=== PATIENT | male | born 1945 | race Caucasian/White ===

== ENCOUNTER → 2021-07-12 10:26 | Outpatient (CLI) | payer MEDICARE, OTHER, SELFPAY ==
--- NOTE | ~2021-07-12 | XR_ITS ---
XR abdomen/kub 1V 07/12/2021 11:52 Indication: Microscopic hematuria Procedure: KUB Comparison: No prior studies for comparison. Findings: Nonobstructive bowel gas pattern. Moderate colonic fecal loading. There is contrast in nond ilated bilateral renal collecting systems and ureters as well as the bladder. Moderate lumbar spondyl osis. Impression: 1: No acute abdominal abnormality. Reviewed, dictated and finalized at location A. [employer]OR OF PROGRAM MANAGEMENT Impression: 1: No acute abdominal abnormality.
--- NOTE | ~2021-07-12 | CT_ITS ---
EXAMINATION: CT abdomen pelvis wo/w con DATE: 07/12/2021 11:52 INDICATION: Microscopic hematuria TECHNIQUE: Computed tomography (CT) of the abdomen and pelvis was performed without and with 130 cc O mnipaque 350 intravenous contrast. The dose-length product was 2317.48 mGy-cm. Automated exposure con trol and iterative reconstruction technique were employed. COMPARISON: CT dated 01/19/2018. FINDINGS: Stable 5 mm left lower lobe nodule. Heart size is normal. No significant pleural or pericar dial effusion. Mild atherosclerosis. No aneurysm. No lymphadenopathy. There are gallstones. There are bladder diverticula with mild surrounding inflammatory change. Cystit is cannot be excluded. The liver, spleen, pancreas, adrenal glands are unremarkable. There are bilateral renal cysts. Ureter s are normal in course and caliber. Right ureteral jet identified. Colonic diverticulosis without stephanie dence for diverticulitis. Normal appendix. No free air or free fluid. No acute bone or joint abnormal ity. IMPRESSION: 1. Multiple bladder diverticula with mild surrounding stranding of the peridiverticular fat. Cannot e xclude cystitis. 2: Cholelithiasis. Reviewed, dictated and finalized at location A. BACK HOST IMPRESSION: 1. Multiple bladder diverticula with mild surrounding stranding of the peridive rticular fat. Cannot exclude cystitis. 2: Cholelithiasis.
[2021-07-12 11:20] LABS: Estimated Glomerular Filt Rate 54
== END ==
PROVIDERS: PCP Family Medicine; Visit Provider Urology
DX: R31.29 Other microscopic hematuria (principal); K80.20 Calculus of gallbladder without cholecystitis without obstruction; N32.3 Diverticulum of bladder; M47.816 Spondylosis without myelopathy or radiculopathy, lumbar region
CPT/HCPCS: 74018; 74178; Q9967

== ENCOUNTER 2022-06-06 15:35 | Outpatient (CLI) | payer OTHER, SELFPAY ==
--- NOTE | ~2022-06-06 | XR_ITS ---
XR tibia fibula RT 2V 06/06/2022 15:56 INDICATION: Injury to the right tibia/fibula PROCEDURE: 2 views right tibia/fibula COMPARISON: No prior studies for comparison. FINDINGS: Fracture, dislocation or subluxation is not identified. The soft tissues appear within norm al limits. No foreign bodies are identified. IMPRESSION: 1: NO ACUTE BONE OR JOINT ABNORMALITY IDENTIFIED. Reviewed, dictated and finalized at location A. MAKER
== END 2022-06-06 15:36 | disposition home or self-care (01) ==
PROVIDERS: PCP Family Medicine; Visit Provider Family Medicine
DX: S80.11XD Contusion of right lower leg, subsequent encounter (principal); L03.90 Cellulitis, unspecified; X58.XXXD Exposure to other specified factors, subsequent encounter
CPT/HCPCS: 73590

== ENCOUNTER 2025-05-06 08:36 | Emergency (ER) | payer MEDICARE, SELFPAY ==
[2025-05-06 08:49] VITALS: BP 134/58; PULSE 81; RESP 16; TEMP 36.7; O2SAT 95
--- NOTE | 2025-05-06 09:01 | ED.URI ---
HPI - URI/Sore Throat General Chief Complaint: Upper Respiratory Infection Stated Complaint: Cough Source: patient Mode of arrival: ambulatory Limitations: no limitations History of Present Illness HPI Narrative: this is a 79-year-old male patient who presents to the urgent care this morning with a 2 day history of cough, sinus congestion. Patient denies any fever, does endorse chills no body aches no shortness of breath or chest pain. No nausea, vomiting or diarrhea. Patient did have a cardiovascular procedure 10 days ago and was concerned. he has been taking Coricidin HBP as well as regular Mucinex with some relief of his symptoms. He denies any other distress or concerns. patient's has been ill since Friday with similar symptoms. MD elicited complaint: cough and nasal congestion Onset (ago): day(s) (2) Consistency: constant Severity: mild Description of mucous: clear Able to tolerate fluids by mouth: Yes Exacerbating factors: nothing Relieving factors: OTC cold medicine Context: sick contacts Associated symptoms: denies other symptoms Treatments prior to arrival: cold medicine Related Data Home Medications ?Medication ?Instructions ?Recorded ?Confirmed ?Last Taken ?Type cyanocobalamin (vitamin B-12) 1,000 mcg PO DAILY 03/30/19 04/14/25 Unknown History 1,000 mcg tablet (Vitamin B-12) magnesium oxide 400 mg PO BID 03/30/19 04/14/25 Unknown History multivitamin,[id number]-rkvo-jahbpzbz 1 tablet PO DAILY 03/30/19 04/14/25 Unknown History (Complete Multivitamin tablet) rosuvastatin 40 mg tablet 40 mg PO DAILY 03/30/19 04/14/25 Unknown History sotalol 80 mg tablet 80 mg PO BID 07/15/19 04/14/25 Unknown History cholecalciferol (vitamin D3) 25 2,000 unit PO DAILY 03/21/20 04/14/25 Unknown History mcg (1,000 unit) capsule tamsulosin 0.4 mg capsule 0.4 mg PO DAILY 10/23/21 04/14/25 Unknown History benazepril 10 mg tablet 10 mg PO DAILY 05/23/22 04/14/25 Unknown History apixaban 5 mg tablet (Eliquis) 5 mg PO BID 12/12/22 04/14/25 Unknown History ezetimibe 10 mg tablet 10 mg PO DAILY 12/12/22 04/14/25 Unknown History Allergies Allergy/AdvReac Type Severity Reaction Status Date / Time sulfamethoxazole (From Allergy Intermediate Rash Verified 05/06/25 08:53 Bactrim) trimethoprim (From Bactrim) Allergy Intermediate Rash Verified 05/06/25 08:53 Penicillins Allergy Unknown Swelling Verified 05/06/25 08:53 [facility] Past Medical History Medical History At low risk for fall At moderate risk for fall (~05/2023) slipped on the ice, May,. Contusion of right lower leg, subsequent encounter x-ray of the right tibia and fibula was negative for bony defects or significant soft tissue swelling 06/06/2022. SARS-CoV-2 positive COVID positive 09/28/21, unknown when symptoms started Cellulitis Mitral valve regurgitation echo 12/09/2023 with mild mitral valve regurgitation. Nonrheumatic aortic valve stenosis with regurgitation Echo on 12/09/2023 with moderate aortic stenosis with [id number] regurgitation. Ejection fraction 70%. BMI 36.0-36.9,adult Controlled diabetes mellitus without complication, without long-term current use of insulin (10/24/23) Glucose 97 with hemoglobin A1c 6.0 on 05/02/2022. fasting glucose 107 with hemoglobin A1c 6.3 on 10/24/2023. Glucose 100, hemoglobin A1c 6.1, urine microalbumin ratio of 86 with GFR 62 on 08/05/2024. Tinea pedis of right foot (~06/06/22) Encounter for prostate cancer screening PSA 0.2 on 05/02/2022. PSA 0.2 on 10/24/2023. Protein in urine (05/02/22) 2+ protein on urinalysis 05/02/2022. Urinalysis normal on 10/24/2023. Obesity (BMI 30-39.9) Atherosclerosis of artery of both lower extremities (~01/22/21) arterial Doppler study on 01/22/2021 reveals mild atherosclerosis of the lower extremities with normal flow BMI 37.0-37.9, adult BMI 38.0-38.9,adult Abnormal fasting glucose Glucose 97 with hemoglobin A1c 6.0 on 05/02/2022. Thrombocytopenia Platelets 149 on 05/02/2022. Platelets 130 on 10/24/2023. Platelets 121 on 08/05/2024. Polyp of colon Benign positional vertigo Mixed hyperlipidemia total cholesterol 145, triglycerides 159, HDL 38, LDL 81 on 05/02/2022. Total cholesterol 107, triglycerides 134, HDL 38, LDL 47 with ratio 2.8 on 10/24/2023. total cholesterol 118, HDL 35, triglycerides 167, LDL 58 with ratio 3.4 with LipoProfile a elevated at 600 on 12/05/2022. Cholesterol 110, HDL 33, triglycerides 160, LDL 53 with ratio 3.3 with lipoprotein a elevated at greater than 600 on 12/01/2023. cholesterol 129, triglycerides 178, HDL 39, LDL 65 with ratio of 3.3 on 08/05/2024. JEZ on CPAP Microscopic hematuria patient has 3+ blood and greater than 60 rbc's and urinalysis with 2+ protein. Normal urinalysis on 10/24/2023. Vitamin D deficiency, unspecified Normal at 34 on 05/02/2022. Level low at 25 on 08/05/2024. Plantar fasciitis, bilateral Vitamin B12 deficiency anemia Normal at 840 with hemoglobin 15.0 on 04/22/2022. Level normal at 621 with hemoglobin 14.2 on 10/24/2023. Nocturia PSA 0.2 on 05/02/2022. Coronary artery disease without angina pectoris CABG x5 vessels. Stress echo on 12/08/2024 with no ischemia. Male erectile dysfunction, unspecified BPH without obstruction/lower urinary tract symptoms Essential (primary) hypertension Chronic atrial fibrillation Social History Social History Smoking status: Former smoker Tobacco type: cigarettes Alcohol intake: former Substance use: never Substance use type: does not use Lack of Transportation: No Lack of Food: Never True Current Housing: I Have Housing Concerned About Future Housing: No Difficulty Paying Gas/Electric Bills: No Difficulty Paying for Meds: No Currently Unemployed: No Education: Associate Degree Difficulty w/ Childcare or Family Care: No Exam Const: General: ill appearing Nutritional Appearance: well nourished Orientation/consciousness: patient oriented x3 Limitations: no limitations HENMT: Head: normal to inspection Ears: external ears normal Face/Nose/Sinus: Nasal discharge present clear Face and sinus: sinus tenderness maxillary Mouth: Yes Normal oral and palatal mucosa present Teeth and gingiva: dentition normal Throat: posterior oropharynx normal Eyes: Conjunctivae: conjunctivae normal Pupils: Equal, round and reactive pupils present EOM: EOMs intact bilaterally Direct Ophthalmoscopy: no photophobia Neck: Neck: normal visual inspection Chest: Chest palpation & inspection: normal inspection of the chest Resp: Effort & Inspection: normal respiratory effort Auscultation: clear to auscultation bilaterally Cardio: Rate: regular rate Rhythm: regular rhythm GI: GI Palp: Yes Soft to palpation Auscultation: normal bowel sounds Skin: General skin exam: normal color Rashes: no rashes Neuro: General: patient oriented x3 Cranial nerves: Yes Nystagmus not present Speech: normal speech Gait exam (Neuro): Normal gait present Course Course Emergency Course: this is a 79-year-old male patient who presents to the urgent care this morning with a 2 day history of cough, sinus congestion. Patient denies any fever, does endorse chills no body aches no shortness of breath or chest pain. No nausea, vomiting or diarrhea. Patient did have a cardiovascular procedure 10 days ago and was concerned. he has been taking Coricidin HBP as well as regular Mucinex with some relief of his symptoms. He denies any other distress or concerns. patient's has been ill since Friday with similar symptoms. Vital signs are stable now afebrile influenza, COVID test redone, patient's is influenza A positive slow positive noted on patient's testing for influenza a educated patient on symptoms, treatment with symptomatic management in Tamiflu. Discussed Tamiflu with his cardiovascular medications will renal dose is Tamiflu. He verbalized understanding he is agreeable and understands risks. Educated patient to Increase fluids, Rest Continue with symptomatic management: -? Cough medication per package instructions -? Tylenol and motrin for fever and pain -? Cough drops for sore throat and cough -? Mucinex for congestion -? Vicks vapor rub -? Cool mist vaporizer Follow up with your primary MD in the next 2-3 days for further exam or Present to the ER for any worrisome sign or symptom answered all questions to satisfaction she is agreeable plan patient denies any further needs or concerns to be addressed prior to discharge Level of Care: Express Care Visit Vital Signs Vital signs: Vital Signs Temperature 98.0 F 05/06/25 08:49 Pulse Rate 81 05/06/25 08:49 Respiratory Rate 16 05/06/25 08:49 Blood Pressure 134/58 L 05/06/25 08:49 Pulse Oximetry 95 05/06/25 08:49 Oxygen Delivery Room Air 05/06/25 08:49 Temperature 98.0 F 05/06/25 08:49 Pulse Rate 81 05/06/25 08:49 Respiratory Rate 16 05/06/25 08:49 Blood Pressure 134/58 L 05/06/25 08:49 Pulse Oximetry 95 05/06/25 08:49 Oxygen Delivery Room Air 05/06/25 08:49 MDM MDM Narrative Medical decision making narrative: this is a 79-year-old male patient who presents to the urgent care this morning with a 2 day history of cough, sinus congestion. Patient denies any fever, does endorse chills no body aches no shortness of breath or chest pain. No nausea, vomiting or diarrhea. Patient did have a cardiovascular procedure 10 days ago and was concerned. he has been taking Coricidin HBP as well as regular Mucinex with some relief of his symptoms. He denies any other distress or concerns. patient's has been ill since Friday with similar symptoms. Vital signs are stable now afebrile influenza, COVID test redone, patient's is influenza A positive slow positive noted on patient's testing for influenza a educated patient on symptoms, treatment with symptomatic management in Tamiflu. Discussed Tamiflu with his cardiovascular medications will renal dose is Tamiflu. He verbalized understanding he is agreeable and understands risks. Educated patient to Increase fluids, Rest Continue with symptomatic management: -? Cough medication per package instructions -? Tylenol and motrin for fever and pain -? Cough drops for sore throat and cough -? Mucinex for congestion -? Vicks vapor rub -? Cool mist vaporizer Follow up with your primary MD in the next 2-3 days for further exam or Present to the ER for any worrisome sign or symptom answered all questions to satisfaction she is agreeable plan patient denies any further needs or concerns to be addressed prior to discharge Differential Diagnosis Differential Diagnosis: influenza, COVID, viral infection Medical Records I have reviewed the following patient records and this information was taken into consideration when formulating the assessment and plan.: previous labs and previous clinic visits Lab Data MDM Lab Attestation statement: I personally reviewed the patient's lab results. Lab results narrative: influenza A positive influenza B negative COVID negative Discharge Plan Discharge Clinical Impression: Influenza A Patient Disposition: Home Condition: Stable Instructions: Influenza (ED) Additional Instructions: Increase fluids Rest Tamiflu as prescribed. Continue with symptomatic management: -? Cough medication per package instructions -? Tylenol and motrin for fever and pain -? Cough drops for sore throat and cough -? Mucinex for congestion -? Vicks vapor rub -? Cool mist vaporizer Follow up with your primary MD in the next 2-3 days for further exam or Present to the ER for any worrisome sign or symptom Patient Language: Citizen Of [place] Prescriptions: New oseltamivir [Tamiflu] 75 mg capsule 75 mg PO Q12H 5 Days Qty: 10 0RF No Action cholecalciferol (vitamin D3) 25 mcg (1,000 unit) capsule 2,000 unit PO DAILY ezetimibe 10 mg tablet 10 mg PO DAILY Patient Comments: prescribed by wood carver Eliquis 5 mg tablet 5 mg PO BID Patient Comments: prescribed by wood carver sotalol 80 mg tablet 80 mg PO BID benazepril 10 mg tablet 10 mg PO DAILY Patient Comments: prescribed by wood carver Complete Multivitamin Tablet 1 tablet PO DAILY magnesium oxide 400 mg magnesium tablet 400 mg PO BID rosuvastatin 40 mg tablet 40 mg PO DAILY cyanocobalamin (vitamin B-12) [Vitamin B-12] 1,000 mcg tablet 1,000 mcg PO DAILY meclizine 25 mg tablet 25 mg PO QID PRN (Reason: dizziness) Qty: 60 3RF tamsulosin 0.4 mg capsule 0.4 mg PO DAILY Patient Comments: filled by Urology Follow-up/Referrals: Peyman Pineda MD [Primary Care Provider, [facility]] Time of Disposition: 09:19
[2025-05-06 09:19] LABS: EDCOVIDSCREEN Negative (Negative); EDINFLUASCREEN Positive (Negative); EDINFLUBSCREEN Negative (Negative)
== END 2025-05-06 09:32 | disposition home or self-care (01) ==
PROVIDERS: Emergency Provider Nurse Practitioner Family; PCP Family Medicine
DX: J10.1 Influenza due to other identified influenza virus with other respiratory manifestations (principal); Z20.822 Contact with and (suspected) exposure to COVID-19; E78.2 Mixed hyperlipidemia; G47.33 Obstructive sleep apnea (adult) (pediatric); I25.10 Atherosclerotic heart disease of native coronary artery without angina pectoris; N40.0 Benign prostatic hyperplasia without lower urinary tract symptoms; I10 Essential (primary) hypertension; I48.20 Chronic atrial fibrillation, unspecified; E53.8 Deficiency of other specified B group vitamins; E55.9 Vitamin D deficiency, unspecified; I34.0 Nonrheumatic mitral (valve) insufficiency; E11.51 Type 2 diabetes mellitus with diabetic peripheral angiopathy without gangrene; I70.203 Unspecified atherosclerosis of native arteries of extremities, bilateral legs; D69.6 Thrombocytopenia, unspecified; E66.9 Obesity, unspecified; Z68.35 Body mass index [BMI] 35.0-35.9, adult; Z79.01 Long term (current) use of anticoagulants
CPT/HCPCS: 87426; 87804; 99213; G0463